=== PATIENT | male | born 1995 | race Caucasian/White ===

== ENCOUNTER 2016-03-26 22:25 | Emergency (ER) | payer OTHER ==
[2016-03-26 22:35] VITALS: BP 116/70; PULSE 71; TEMP 98.6; BMI 20.9
--- NOTE | 2016-03-26 22:47 | PDOC ---
*Physical Exam - Vital Signs Last Vital Signs Temp Pulse Resp BP Pulse Ox 98.6 F 71 18 116/70 98 03/26/16 22:29 03/26/16 22:29 03/26/16 22:29 03/26/16 22:29 03/26/16 22:29 ED Treatment Course - LABORATORY CBC & Chemistry Diagram: 03/26/16 23:45 03/26/16 23:45 Medical Decision Making - Medical Decision Making 03/26/16 22:46 Pt seen by the Advanced Practice Provider under my direct supervision Ancillary studies reviewed I agree with plan as outlined by the Advanced Practice Provider TRINIDAD Andrew *DC/Admit/Observation/Transfer Diagnosis at time of Disposition: Abdominal pain - Discharge Dispostion Disposition: HOME - Prescriptions Prescriptions: Ibuprofen 600 mg PO TID PRN #21 tablet PRN Reason: Pain - Referrals Referrals: STAFF,NOT ON [Primary Care Provider] - - Patient Instructions Printed Discharge Instructions: DI for Abdominal Pain-Adult Additional Instructions: Please take medication as prescribed. Follow up with your primary care doctor if symptoms persist. If you experience fever, nausea, vomiting, diarrhea, or your pain worsens in the right lower quadrant of your stomach, or you have changes in your urine, please return to the ER.
--- NOTE | 2016-03-26 22:58 | PDOC ---
History of Present Illness - General Chief Complaint: Pain, Acute Stated Complaint: ABD PAIN Time Seen by Provider: 03/26/16 22:34 - History of Present Illness Initial Comments: 03/26/16 22:47 CHIEF COMPLAINT: abdominal pain HISTORY OF PRESENT ILLNESS: 20 yo M with no PMH presents to ED with intermittent RLQ pain x 1 week. Patient states he has no pain walking and denies any fever, nausea, vomiting, diarrhea, or any urinary discomfort, frequency, or blood in urine. He describes the pain "more like a bother, like it feels swollen or like a bruise that hurts." No recent travel or sick contacts. 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 SURGICAL HISTORY: Denies ALLERGIES: No known drug allergies REVIEW OF SYSTEMS General/Constitutional: Denies fever or chills. Denies weakness, weight change. HEENT: Denies change in vision. Denies ear pain or discharge. Denies sore throat. Cardiovascular: Denies chest pain or shortness of breath. Respiratory: Denies cough, wheezing, or hemoptysis. Gastrointestinal: Intermittent abdominal pain x 1 week. Denies nausea, vomiting , diarrhea or constipation. Denies rectal bleeding. Genitourinary: Denies dysuria, frequency, or change in urination. Musculoskeletal: Denies joint or muscle swelling or pain. Denies neck or back pain. Skin and breasts: Denies rash or easy bruising. Neurologic: Denies headache, vertigo, loss of consciousness, or loss of sensation. PHYSICAL EXAM General Appearance: Well-appearing, appropriately dressed. No apparent distress , no intoxication. HEENT: EOMI, PERRLA, normal ENT inspection, normal voice, TMs normal, pharynx normal. No conjunctival pallor. No photophobia, scleral icterus. Neck: Supple. Trachea midline. No tenderness, rigidity, carotid bruit, stridor , lymphadenopathy, or thyromegaly. Respiratory/Chest: Lungs CTAB. Cardiovascular: RRR. S1, S2. Gastrointestinal/Abdominal: Minimal RLQ tenderness on deep palpation. Normal bowel sounds. Abdomen soft, non-distended. No tenderness or rebound tenderness. No organomegaly, pulsatile mass, guarding, hernia, hepatomegaly, splenomegaly. Musculoskeletal/Extremities: Normal inspection. FROM of all extremities, normal capillary refill. Pelvis Stable. No CVA tenderness. No tenderness to extremities, pedal edema, swelling, erythema or deformity. Integumentary: Appropriate color, dry, warm. 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 Fully oriented, alert. Appropriate mood/affect. Motor strength 5/5. No appreciable EOM palsy, facial droop or sensory deficit. 03/26/16 23:01 03/27/16 02:23 Past History - Past Medical History Allergies/Adverse Reactions: Allergies Allergy/AdvReac Type Severity Reaction Status Date / Time No Known Allergies Allergy Verified 03/26/16 22:26 Home Medications: Ambulatory Orders Ibuprofen 600 mg PO TID PRN #21 tablet 03/27/16 - Psycho/Social/Smoking Cessation Hx Suicidal Ideation: No Smoking History: Current some day smoker Have you smoked in the past 12 months: Yes If you are a former smoker, when did you quit?: ideasoft Information on smoking cessation initiated: No *Physical Exam - Vital Signs Last Vital Signs Temp Pulse Resp BP Pulse Ox 98.6 F 71 18 116/70 98 03/26/16 22:29 03/26/16 22:29 03/26/16 22:29 03/26/16 22:29 03/26/16 22:29 ED Treatment Course - LABORATORY CBC & Chemistry Diagram: 03/26/16 23:45 03/26/16 23:45 Medical Decision Making - Medical Decision Making 03/26/16 23:05 20 yo M with no PMH presents to ED with intermittent RLQ pain x 1 week. -CBC, CMP, lipase -UA, UCx Discussed case with attending MD Walker, will order abdomen & pelvis CT to eval for appy vs kidney stone. CT results: The pelvic small and large bowel are normal. The appendix is normal. The urinary bladder and prostate gland are normal. No pelvic free fluid is identified. There is no significant pelvic lymphadenopathy. No localizing signs for acute pathology. Read by: Luis Eduardo Eaton MD -600 mg ibuprofen TID prn pain Advised patient to follow up with primary care doctor if symptoms persist. Advised patient of signs and symptoms for return to ER. Patient verbalized understanding and agrees to plan. 03/27/16 02:24 *DC/Admit/Observation/Transfer Diagnosis at time of Disposition: Abdominal pain Qualifiers: Abdominal location: right lower quadrant Qualified Code(s): R10.31 - Right lower quadrant pain - Discharge Dispostion Disposition: HOME Condition at time of disposition: Stable Admit: No - Prescriptions Prescriptions: Ibuprofen 600 mg PO TID PRN #21 tablet PRN Reason: Pain - Patient Instructions Printed Discharge Instructions: DI for Abdominal Pain-Adult Additional Instructions: Please take medication as prescribed. Follow up with your primary care doctor if symptoms persist. If you experience fever, nausea, vomiting, diarrhea, or your pain worsens in the right lower quadrant of your stomach, or you have changes in your urine, please return to the ER.
[2016-03-27 00:10] LABS: URINE APPEARANCE CLEAR; URINE BILIRUBIN NEGATIVE (NEGATIVE); URINE BLOOD NEGATIVE (NEGATIVE); URINE COLOR LTYELLOW; URINE GLUCOSE (UA) NEGATIVE (NEGATIVE); URINE KETONE NEGATIVE (NEGATIVE); URINE LEUK ESTERASE NEGATIVE (NEGATIVE); URINE NITRITE NEGATIVE (NEGATIVE); URINE PROTEIN NEGATIVE (NEGATIVE); URINE UROBILINOGEN NEGATIVE E.U./dl (0.2-1.0)
[2016-03-27 00:38] LABS: ALBUMIN 4.3 g/dl (3.4-5.0); ANION GAP 8 (8-16); BILIRUBIN,TOTAL 0.5 mg/dL (0.2-1.0); CALCIUM 9.4 mg/dL (8.5-10.1); CO2 31 mmol/L (21-32); CREATININE 1.3 mg/dL (0.7-1.3); GLUCOSE,RANDOM 74 mg/dL (74-106); SGPT/ALT 18 U/L (12-78); TOT PROT 7.7 g/dl (6.4-8.2)
[2016-03-27 00:39] LABS: ALK PHOS 60 U/L (45-117)
[2016-03-27 00:40] LABS: SGOT/AST 15 U/L (15-37)
[2016-03-27 00:51] LABS: BASOPHIL 0.4 % (0-2.0); EOSINOPHIL 2.3 % (0-4.5); MCH 31.2 pg (25.7-33.7); MCHC 32.9 g/dl (32.0-35.9); MEAN CELL VOLUME 94.8 fl (80-96); MEAN PLT VOLUME 9.6 fl (7.5-11.1); NEUTROPHILS 49.4 % (42.8-82.8); PLATELET COUNT 178 K/MM3 (134-434); RDW 12.3 % (11.9-15.9); WHITE BLOOD COUNT 7.4 K/mm3 (4.0-10.0)
== END 2016-03-27 02:48 | disposition home or self-care (01) ==
LOC: JER 22:25
DX: R10.31 Right lower quadrant pain (principal)
CPT/HCPCS: 36415; 74176-TC; 80053; 81003; 83690; 85025; 87086; 99283-25